=== PATIENT | female | born 1985 | race Caucasian/White ===

== ENCOUNTER 2016-07-03 11:12 | Emergency (ER) | payer MEDICAID ==
[2016-07-03 11:31] VITALS: BP 127/74; PULSE 76; RESP 16; TEMP 98.4; O2SAT 98
--- NOTE | 2016-07-03 12:11 | UCPHY ---
H & P Time Seen by Provider: 07/03/16 11:39 Smoking Status: Never smoked Constitutional: Initial Vital Signs Temperature (C) 36.9 C 07/03/16 11:27 Heart Rate 76 07/03/16 11:27 Respiratory Rate 16 07/03/16 11:27 Blood Pressure 127/74 H 07/03/16 11:27 O2 Sat (%) 98 07/03/16 11:27 O2 Delivery Mode Room Air Allergies/Adverse Reactions: methylergonovine [From Methergine] Allergy (Verified 07/03/16 11:26) Home Medications: Medication Instructions Recorded NK [No Known Home Meds] 07/29/14 Departure - Departure Disposition: Home, Routine, Self-Care Clinical Impression: Hand contusion, Sprain, finger Condition: Good Instructions: Finger Sprain (ED), Contusion in Adults (ED) Referrals: [facility] [Other] - As per Instructions - PQRS PQRS Measurement: na
== END 2016-07-03 12:17 | disposition home or self-care (01) ==
LOC: CED 11:12
DX: S63.613A Unspecified sprain of left middle finger, initial encounter (principal); S60.222A Contusion of left hand, initial encounter; Y93.72 Activity, wrestling; Y92.019 Unspecified place in single-family (private) house as the place of occurrence of the external cause
CPT/HCPCS: 73140-PO; G0463-PO

== ENCOUNTER 2016-11-05 16:18 | Emergency (ER) | payer MEDICAID ==
[2016-11-05 16:32] VITALS: RESP 18; TEMP 98
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
[2016-11-05 17:35] VITALS: BP 115/62; PULSE 77; O2SAT 97
== END 2016-11-05 17:34 | disposition home or self-care (01) ==
LOC: CED 16:18
DX: S70.11XA Contusion of right thigh, initial encounter (principal); S70.311A Abrasion, right thigh, initial encounter; W54.0XXA Bitten by dog, initial encounter; Y92.480 Sidewalk as the place of occurrence of the external cause; Y99.8 Other external cause status; Y93.55 Activity, bike riding